=== PATIENT | male | born 1995 | race Caucasian/White ===

== ENCOUNTER → 2017-11-10 | Outpatient (CLI) | payer OTHER | LOC: FIMAGING 10:09 | PROVIDERS: ATTEND Surgery | DX: Z45.1 Encounter for adjustment and management of infusion pump (principal); R91.8 Other nonspecific abnormal finding of lung field; C63.2 Malignant neoplasm of scrotum ==

== ENCOUNTER 2017-12-06 08:39 | Observation (INO) | payer OTHER ==
[2017-12-06 09:02] VITALS: BP 117/60
[2017-12-06] MEDS ORDERED: NS 500 ML IV ONE ×2 (09:30→14:00)
[2017-12-06 09:46] LABS: PLATELET COUNT 275 10^3/uL (150-400)
[2017-12-06] MEDS ORDERED: FOSAPREPITANT 150 MG in D5W 250 ML IV SCH (10:30)
[2017-12-06] MEDS ORDERED: DEXAMETHASONE SOD PHOSPHATE 10 MG in NS (SYRINGE) 50 ML IV SCH (10:30)
[2017-12-06] MEDS ORDERED: PALONOSETRON HCL 0.25 MG/5 ML VIAL IVP SCH (10:30)
[2017-12-06] MEDS ORDERED: ETOPOSIDE IV SCH (11:00)
[2017-12-06] MEDS ORDERED: NS IV SCH ×2 (11:00→12:00)
[2017-12-06] MEDS ORDERED: CISPLATIN IV SCH (12:00)
== END 2017-12-06 14:36 | disposition home or self-care (01) ==
LOC: F1NOP 08:39 → EDSTATUS 09:00 → F1N 09:30
PROVIDERS: ADMIT Internal Medicine Hematology & Oncology; ATTEND Internal Medicine Hematology & Oncology
DX: Z51.11 Encounter for antineoplastic chemotherapy (principal); C62.90 Malignant neoplasm of unspecified testis, unspecified whether descended or undescended
CPT/HCPCS: 84702-90; J1100; J1453; J1642; J2469; J9060; J9181